=== PATIENT | female | born 1990 | race Caucasian/White ===

== ENCOUNTER 2016-12-14 12:06 | Emergency (ER) | payer MEDICAID ==
[2016-12-14 14:05] LABS: BASOPHILS 0 % (0.0-2.0); EOSINOPHILS 0.8 % (0-7); HEMATOCRIT 36.7 % (36.0-48.0); HEMOGLOBIN 11.7 g/dL (12-16); IMMATURE GRANULOCYTES 0.2 % (0-5); LYMPHOCYTES 24.3 % (15-50); MCH 25.2 pg (26.0-34.0); MCHC 31.9 g/dL (31.0-37.0); MCV 79.1 fL (80.0-100.0); MEAN PLATELET VOLUME 11.1 fL (7.4-10.4); NEUTROPHILS 65.7 % (40-80); PLATELET COUNT 195 10x3/uL (130-400); RBC 4.64 10x6/uL (4.00-5.40); RDW 16.7 % (11.5-14.5); WBC 6.5 10x3/uL (4.8-10.8)
== END 2016-12-14 16:10 | disposition home or self-care (01) ==
LOC: D.ER 12:06
PROVIDERS: Nurse Practitioner Family
DX: S39.012A Strain of muscle, fascia and tendon of lower back, initial encounter (principal); V43.92XA Unspecified car occupant injured in collision with other type car in traffic accident, initial encounter; Y93.89 Activity, other specified; Y92.410 Unspecified street and highway as the place of occurrence of the external cause; M25.562 Pain in left knee